=== PATIENT | male | born 1980 | race Caucasian/White ===

== ENCOUNTER 2017-10-12 01:31 | Emergency (ER) | payer MEDICAID, OTHER ==
[2017-10-12 01:32] VITALS: BMI 21.9
[2017-10-12 01:43] VITALS: TEMP 98; O2SAT 98
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
[2017-10-12 03:09] VITALS: BP 130/84; PULSE 108; RESP 20
--- NOTE | 2017-10-15 07:09 | CARD ---
APPROVED REPORT EKG Measurement Heart [id number] <Conclusion> Sinus rhythm with premature atrial complexes with aberrant conduction Incomplete right bundle branch block Borderline ECG
== END 2017-10-12 03:07 | disposition home or self-care (01) ==
LOC: C.ER 01:31
DX: G40.909 Epilepsy, unspecified, not intractable, without status epilepticus (principal); Z91.14 Patient's other noncompliance with medication regimen

== ENCOUNTER → 2017-10-13 22:46 | Emergency (ER) | payer OTHER ==
[2017-10-13 22:46] VITALS: BMI 21.9
== END | disposition left against medical advice (07) ==
LOC: C.ER 22:46
DX: Z02.89 Encounter for other administrative examinations (principal); R56.9 Unspecified convulsions

== ENCOUNTER 2018-09-16 13:03 | Emergency (ER) | payer OTHER ==
[2018-09-16] MEDS ORDERED: Lidocaine 1% Inj (20ml) INFIL STA (13:27)
[2018-09-16] MEDS ORDERED: Amoxicillin-Clav 875-125 mg Tab PO STA (13:27)
[2018-09-16] MEDS ORDERED: Tetanus/Diphtheria Toxoids 0.5 ml Syringe IM ONE ×2 (13:27→13:38)
[2018-09-16 13:28] VITALS: BP 135/100; PULSE 86; RESP 19; TEMP 98.1; O2SAT 96
[2018-09-16] MEDS ORDERED: Lidocaine Hydrochloride 5 ML INJ ONE (13:37)
[2018-09-16] MEDS ORDERED: Amoxicillin-Clav 875-125 mg Tab PO ONE (13:37)
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
== END 2018-09-16 14:16 | disposition home or self-care (01) ==
LOC: C.ER 13:03
DX: S61.431A Puncture wound without foreign body of right hand, initial encounter (principal); L03.113 Cellulitis of right upper limb; W51.XXXA Accidental striking against or bumped into by another person, initial encounter